=== PATIENT | male | born 1955 | race Caucasian/White ===

== ENCOUNTER 2019-12-14 09:42 | Emergency (ER) | payer OTHER, MEDICARE ==
[~2019-12-14] VITALS: Ht 170.2 cm; Wt 45.4 kg
[2019-12-14] MEDS ORDERED: Novolog100 UNIT/1 SC (10:00)
[2019-12-14] MEDS ORDERED: INSULANPEN SC (10:00)
[2019-12-14 10:50] LABS: Calcium, Ionized (POC) 1.13 mmol/L (1.10-1.46); Chloride (POC) 100 mmol/L (98-108); Creatinine (POC) 0.5 mg/dL (0.8-1.3); Glucose (ISTAT POC) 388 mg/dL (70-99); Hemoglobin (POC) 11.6 g/dL (13.5-17.5); Potassium (POC) 4.5 mmol/L (3.5-5.5); Sodium (POC) 135 mmol/L (135-148); Total CO2 (POC) 26 mmol/L (21-32)
[2019-12-14] MEDS ORDERED: BASAGLAR K100 UNIT/1 SC (11:33)
[2019-12-14] MEDS ORDERED: Novolin R100 UNIT/M SC (11:33)
== END 2019-12-14 11:45 | disposition home or self-care (01) ==
LOC: ER 09:42
PROVIDERS: Physician Assistant
DX: E11.9 Type 2 diabetes mellitus without complications (principal); Z76.0 Encounter for issue of repeat prescription; F17.210 Nicotine dependence, cigarettes, uncomplicated; Z79.4 Long term (current) use of insulin
CPT/HCPCS: 36415; 80047; 82947; 85014; 99283